=== PATIENT | female | born 1930 | race Caucasian/White ===

== ENCOUNTER 2016-09-30 06:37 | Inpatient (IN) | payer OTHER ==
[~2016-09-30] VITALS: Ht 162.6 cm; Wt 67.4 kg
[2016-09-30] MEDS ORDERED: ELIQUIS 5 MG TAB5 MG PO (08:18)
[2016-09-30] MEDS ORDERED: NEURONTIN 100100 MG PO (08:19)
[2016-09-30] MEDS ORDERED: LEVOTHYROXINE25 MCG PO (08:19)
[2016-09-30] MEDS ORDERED: NEURONTIN 300300 MG PO (08:19)
[2016-09-30] MEDS ORDERED: ATIVAN0.5 MG PO (08:20)
[2016-09-30] MEDS ORDERED: ROXICODONE5 MG PO (08:21)
[2016-09-30] MEDS ORDERED: CIPRO500 MG PO (08:22)
[2016-09-30] MEDS ORDERED: METRONIDAZOLE500 MG PO (08:22)
[2016-09-30 10:31] LABS: HEMOGLOBIN 12.9 gm/dl (12.3-15.3); RED BLOOD COUNT 4.16 M/UL (4.00-5.10); WHITE BLOOD COUNT 8.2 K/UL (4.5-11.0)
[2016-09-30 10:54] LABS: BUN/CREATININE RATIO 22 (0-10)
[2016-10-01 05:16] LABS: HEMOGLOBIN 11.6 gm/dl (12.3-15.3); RED BLOOD COUNT 3.83 M/UL (4.00-5.10)
[2016-10-01 05:25] LABS: WHITE BLOOD COUNT 5.8 K/UL (4.5-11.0)
[2016-10-01 05:34] LABS: BUN/CREATININE RATIO 17 (0-10)
[2016-10-02] MEDS ORDERED: ELIQUIS2.5 MG PO (16:00)
[2016-10-02] MEDS ORDERED: ASPIRIN CHEWABL81 MG PO (16:01)
[2016-10-02] MEDS ORDERED: LIPITOR TAB 1010 MG PO (16:02)
[2016-10-02] MEDS ORDERED: PLAVIX 75 MG TA75 MG PO (16:02)
[2016-10-02] MEDS ORDERED: LOPRESSOR 25 MG25 MG PO (16:04)
[2016-10-02] MEDS ORDERED: LEVAQUIN500 MG PO (16:10)
[2016-10-02] MEDS ORDERED: ARTIFICIAL TEAR15 M2 OP (16:13)
== END 2016-10-02 17:05 | disposition home or self-care (01) | DRG 281 ==
LOC: PROG CARE 07:48
PROVIDERS: Physician Assistant; ADMIT Internal Medicine Infectious Disease
DX: I21.4 Non-ST elevation (NSTEMI) myocardial infarction (principal); I47.2 Ventricular tachycardia; J01.90 Acute sinusitis, unspecified; B96.89 Other specified bacterial agents as the cause of diseases classified elsewhere; K52.9 Noninfective gastroenteritis and colitis, unspecified; R11.2 Nausea with vomiting, unspecified; T37.3X5A Adverse effect of other antiprotozoal drugs, initial encounter; I10 Essential (primary) hypertension; E03.9 Hypothyroidism, unspecified; K21.9 Gastro-esophageal reflux disease without esophagitis; M81.0 Age-related osteoporosis without current pathological fracture; F41.9 Anxiety disorder, unspecified; Z86.718 Personal history of other venous thrombosis and embolism; Z85.3 Personal history of malignant neoplasm of breast; Z72.3 Lack of physical exercise; Z79.01 Long term (current) use of anticoagulants; Z79.891 Long term (current) use of opiate analgesic; Z79.899 Other long term (current) drug therapy; Z90.11 Acquired absence of right breast and nipple; Z90.710 Acquired absence of both cervix and uterus; Z98.42 Cataract extraction status, left eye; Z98.41 Cataract extraction status, right eye; Z98.890 Other specified postprocedural states; Z83.3 Family history of diabetes mellitus
CPT/HCPCS: ECHO; 36415; 80048; 80053; 82150; 82550; 82553; 83690; 83735; 84484; 85025; 85610; 85730; 87040; 93005; 93306; C9113; J1644; J1956; J2405; J2550; J7030